=== PATIENT | female | born 1995 | race Caucasian/White ===

== ENCOUNTER → 2023-10-09 | Outpatient (CLI) | payer OTHER ==
[2023-10-09 16:18] LABS: HEMATOCRIT 39.4 % (36.0-47.0); HEMOGLOBIN 13.1 g/dl (12.0-15.5); MEAN CORPUSCULAR HEMOGLOBIN 28.5 pg (27.0-33.0); MEAN CORPUSCULAR HGB CONC 33.2 g/dl (32.0-36.5); MEAN CORPUSCULAR VOLUME 85.7 fl (80.0-96.0); PLATELET COUNT, AUTOMATED 253 10^3/uL (150-450); WHITE BLOOD COUNT 10.1 10^3/uL (4.0-10.0)
[2023-10-09 17:09] LABS: GC DNA AMPLIFICATION NEGATIVE (NEGATIVE)
[2023-10-09 17:13] LABS: HIV 1&2 SCREEN NEGATIVE (NEGATIVE)
[2023-10-09 17:20] LABS: HEPATITIS C VIRUS ABY INDEX 0.06 INDEX (<0.8)
== END ==
LOC: M PLALAB 14:33
PROVIDERS: ATTEND Advanced Practice Midwife
DX: Z34.81 Encounter for supervision of other normal pregnancy, first trimester (principal)

== ENCOUNTER → 2023-12-05 | Outpatient (CLI) | payer OTHER | LOC: M WHC 08:45 | PROVIDERS: ATTEND Advanced Practice Midwife | DX: Z34.02 Encounter for supervision of normal first pregnancy, second trimester (principal) ==

== ENCOUNTER → 2024-01-05 | Outpatient (CLI) | payer OTHER | LOC: M WHC 14:31 | PROVIDERS: ATTEND Advanced Practice Midwife | DX: O99.512 Diseases of the respiratory system complicating pregnancy, second trimester (principal); Z3A.23 23 weeks gestation of pregnancy; J45.909 Unspecified asthma, uncomplicated ==

== ENCOUNTER → 2024-01-11 | Outpatient (CLI) | payer OTHER, SELFPAY ==
[2024-01-11 18:00] LABS: HEMATOCRIT 33.7 % (36.0-47.0); HEMOGLOBIN 11.4 g/dl (12.0-15.5); MEAN CORPUSCULAR HEMOGLOBIN 31.1 pg (27.0-33.0); MEAN CORPUSCULAR HGB CONC 33.8 g/dl (32.0-36.5); MEAN CORPUSCULAR VOLUME 92.1 fl (80.0-96.0); PLATELET COUNT, AUTOMATED 238 10^3/uL (150-450); RED BLOOD COUNT 3.66 10^6/uL (4.00-5.40); WHITE BLOOD COUNT 14.9 10^3/uL (4.0-10.0)
[2024-01-11 19:37] LABS: GC DNA AMPLIFICATION NEGATIVE (NEGATIVE)
== END ==
LOC: M PLALAB 14:32
PROVIDERS: ATTEND Specialist
DX: Z34.02 Encounter for supervision of normal first pregnancy, second trimester (principal); J84.10 Pulmonary fibrosis, unspecified

== ENCOUNTER → 2024-02-07 | Outpatient (CLI) | payer OTHER | LOC: M WHC 13:44 | PROVIDERS: ATTEND Obstetrics & Gynecology | DX: O99.212 Obesity complicating pregnancy, second trimester (principal); Z3A.28 28 weeks gestation of pregnancy ==

== ENCOUNTER → 2024-04-05 | Outpatient (REF) | payer OTHER ==
[~2024-04-05] MED LIST: PRENTAB9 PO
== END ==
LOC: M SFHCWAGY 09:48
PROVIDERS: ATTEND Obstetrics & Gynecology
DX: Z36.85 Encounter for antenatal screening for Streptococcus B (principal); Z3A.36 36 weeks gestation of pregnancy

== ENCOUNTER 2024-04-09 03:55 | Outpatient (CLI) | payer OTHER ==
[~2024-04-09] VITALS: Ht 170.2 cm; Wt 111.3 kg
[2024-04-09] MEDS ORDERED: PRENTAB9 PO (04:09)
[2024-04-09] MEDS ORDERED: HOME MED LIST COMPLETE! XX SCH (04:10)
[2024-04-09 04:21] VITALS: BP 113/74
[2024-04-09 07:05] VITALS: BP 134/84
[2024-04-09 08:20] VITALS: BP 126/80
== END 2024-04-09 08:24 | disposition home or self-care (01) ==
LOC: M LDO 03:55
PROVIDERS: ATTEND Advanced Practice Midwife
DX: O47.1 False labor at or after 37 completed weeks of gestation (principal); O99.343 Other mental disorders complicating pregnancy, third trimester; O99.513 Diseases of the respiratory system complicating pregnancy, third trimester; O99.353 Diseases of the nervous system complicating pregnancy, third trimester; O99.213 Obesity complicating pregnancy, third trimester; F41.8 Other specified anxiety disorders; J45.909 Unspecified asthma, uncomplicated; G43.909 Migraine, unspecified, not intractable, without status migrainosus; E66.9 Obesity, unspecified; Z3A.37 37 weeks gestation of pregnancy
CPT/HCPCS: 59025; G0463

== ENCOUNTER 2024-04-13 15:30 | Inpatient (IN) | payer OTHER ==
[~2024-04-13] VITALS: Ht 170.2 cm; Wt 111.4 kg
[2024-04-13] VITALS (22 sets, daily range): BP systolic 81–129; BP diastolic 51–79
[2024-04-13] MEDS ORDERED: miSOPROStol 50MCG 1/2 TABLET PO PRN (17:20)
[2024-04-13] MEDS: AMPICILLIN SOD 2 GM in D5W MINI-BAG PLUS 100 ML IV STA (17:45)
[2024-04-13] MEDS: LACTATED RINGER'S 1000 ML IV STA (17:45)
[2024-04-13 17:49] LABS: HEMATOCRIT 36.7 % (36.0-47.0); HEMOGLOBIN 12.5 g/dl (12.0-15.5); MEAN CORPUSCULAR HEMOGLOBIN 29.8 pg (27.0-33.0); MEAN CORPUSCULAR HGB CONC 34.1 g/dl (32.0-36.5); MEAN CORPUSCULAR VOLUME 87.6 fl (80.0-96.0); PLATELET COUNT, AUTOMATED 243 10^3/uL (150-450); RED BLOOD COUNT 4.19 10^6/uL (4.00-5.40); WHITE BLOOD COUNT 18.8 10^3/uL (4.0-10.0)
[2024-04-13 18:56] LABS: HEPATITIS C VIRUS ABY INDEX 0.02 INDEX (<0.8)
[2024-04-13] MEDS ORDERED: EPIDURAL/PCA KEYS XX PRN (19:35)
[2024-04-13] MEDS ORDERED: NALOXONE INJ 0.4MG/1ML VIAL IV PRN (19:35)
[2024-04-13] MEDS ORDERED: diphenhydrAMINE 50MG/ML VIAL IV PRN (19:35)
[2024-04-13] MEDS ORDERED: ONDANSETRON 4MG 2ML VIAL IV PRN (19:35)
[2024-04-13] MEDS: ePHEDrine SULFATE 25 MG/5 ML(5MG/ML) SYRINGE IVP PRN (20:55)
[2024-04-13] MEDS: LR 500 ML IV PRN (21:00)
[2024-04-13] MEDS: FENTANYL/ROPIVACAINE/NACL BAG 100 ML EPIDURAL SCH (21:07)
[2024-04-13] MEDS: OXYTOCIN DRIP 30 UNITS in IV 1 EA IV SCH (21:36)
[2024-04-13] MEDS: AMPICILLIN SOD 1 GM in D5W MINI-BAG PLUS 50 ML IV SCH (22:25)
[2024-04-14] VITALS (16 sets, daily range): BP systolic 114–133; BP diastolic 66–91; O2SAT 98–99
[2024-04-14] MEDS ORDERED: METHYLERGONOVINE MALEATE 0.2 MG TAB PO PRN (05:35)
[2024-04-14] MEDS ORDERED: RHO(D) IMMUNE GLOBULIN/MALTOSE 500MCG(2500IU)/2.2ML VIAL (WINRHO) IM SCH (05:35)
[2024-04-14] MEDS ORDERED: DOCUSATE SODIUM 100MG CAPSULE PO PRN (05:35)
[2024-04-14] MEDS: ACETAMINOPHEN TAB 650MG DOSE (2X325MG) PO PRN (06:20)
[2024-04-14] MEDS: PRENATAL VITAMINS CHEWABLE TABLET PO SCH (09:12)
[2024-04-14] MEDS: IBUPROFEN 600MG TAB PO PRN (12:03)
[2024-04-14] MEDS: IBUPROFEN 800 MG TAB PO PRN (20:20)
[2024-04-15 06:00] VITALS: BP 134/87; O2SAT 100
[2024-04-15] MEDS: DIBUCAINE 1% OINTMENT 30GM TOP PRN (11:45)
[2024-04-15 18:00] VITALS: BP 128/70; O2SAT 98
[2024-04-15] MEDS: ACETAMINOPHEN 500 MG TAB PO PRN (23:02)
[2024-04-16 06:00] VITALS: BP 131/77; O2SAT 100
[2024-04-16] MEDS: MEASLES,MUMPS,RUBELLA VACCINE INJ (MMR-II) SC.IMMUN ONE (08:51)
== END 2024-04-16 13:25 | disposition home or self-care (01) | DRG 560 ==
LOC: M LDO 15:30 → M LDI 17:14 → M OBS 04-14 04:42
PROVIDERS: ADMIT Obstetrics & Gynecology; ATTEND Obstetrics & Gynecology
PROC: 10E0XZZ Delivery of Products of Conception, External Approach (ICD-10-PCS; principal; 2024-04-14)
DX: O99.824 Streptococcus B carrier state complicating childbirth (principal); Z37.0 Single live birth; Z3A.37 37 weeks gestation of pregnancy

== ENCOUNTER 2024-05-07 04:32 | Emergency (ER) | payer OTHER ==
[~2024-05-07] VITALS: Ht 170.2 cm; Wt 100.1 kg
[2024-05-07 05:10] LABS: BASO % 0.4 % (0.0-1.0); EOS # 0.1 10^3/uL (0.0-0.5); EOS % 1.4 % (0.0-3.0); HEMATOCRIT 37.9 % (36.0-47.0); HEMOGLOBIN 12.3 g/dl (12.0-15.5); LYMPH # 2.2 10^3/uL (1.5-5.0); LYMPH % 28.2 % (24.0-44.0); MEAN CORPUSCULAR HEMOGLOBIN 28.3 pg (27.0-33.0); MEAN CORPUSCULAR HGB CONC 32.5 g/dl (32.0-36.5); MEAN CORPUSCULAR VOLUME 87.3 fl (80.0-96.0); MONO # 0.4 10^3/uL (0.0-0.8); MONO % 5.3 % (2.0-8.0); NEUTROPHILS % 64.4 % (36.0-66.0); PLATELET COUNT, AUTOMATED 259 10^3/uL (150-450); RED BLOOD COUNT 4.34 10^6/uL (4.00-5.40); WHITE BLOOD COUNT 7.7 10^3/uL (4.0-10.0)
[2024-05-07 05:17] VITALS: BP 159/91
[2024-05-07 05:26] LABS: D-DIMER QUANT 0.57 ug/mL (<0.5); INR 1.02; PARTIAL THROMBOPLASTIN TIME 29.6 SECONDS (24.8-34.2); PROTHROMBIN TIME 13.1 SECONDS (12.5-14.5)
[2024-05-07 05:36] LABS: LIPASE 53 U/L (12-53)
[2024-05-07 05:38] LABS: ALBUMIN 3.5 G/DL (3.2-5.2); ALKALINE PHOSPHATASE 114 U/L (46-116); ALT/SGPT 12 U/L (7.0-40); AST/SGOT 12 U/L (<34); BILIRUBIN,DIRECT 0.2 MG/DL (<0.4); BILIRUBIN,TOTAL 0.6 MG/DL (0.3-1.2); BLOOD UREA NITROGEN 7 MG/DL (9-23); CARBON DIOXIDE LEVEL 23 MMOL/L (20-31); CHLORIDE LEVEL 110 MMOL/L (98-107); CK-MB VALUE MASS < 1.0 NG/ML (<3.6); CPK CREATINE PHOSPHOKINASE 28 U/L (34-145); CREATININE FOR GFR 0.86 MG/DL (0.55-1.30); GLOMERULAR FILTRATION RATE > 60.0 (>60); GLUCOSE, FASTING 99 MG/DL (60-100); MB/CK RELATIVE INDEX 3.57 (< OR =4); POTASSIUM SERUM 3.5 MMOL/L (3.5-5.1); SODIUM LEVEL 139 MMOL/L (136-145); TOTAL PROTEIN 6.5 G/DL (5.7-8.2)
[2024-05-07 05:40] LABS: THYROID STIMULATING HORMONE 2.072 uIU/ML (0.55-4.78)
[2024-05-07 05:41] LABS: FREE T4 1.44 NG/DL (0.89-1.76)
[2024-05-07 06:23] VITALS: TEMP 96.6
[2024-05-07 06:30] VITALS: O2SAT 99
[2024-05-07] MEDS ORDERED: ISOVUE-370 76% 100ML VIAL As Ordered ONE (07:15)
[2024-05-07 07:17] LABS: CK-MB VALUE MASS < 1.0 NG/ML (<3.6)
[2024-05-07 07:19] LABS: CPK CREATINE PHOSPHOKINASE 31 U/L (34-145); MB/CK RELATIVE INDEX 3.22 (< OR =4)
== END 2024-05-07 08:42 | disposition home or self-care (01) ==
LOC: M ED 04:32
DX: R07.9 Chest pain, unspecified (principal); F32.A Depression, unspecified; F41.9 Anxiety disorder, unspecified; Z88.8 Allergy status to other drugs, medicaments and biological substances; J45.909 Unspecified asthma, uncomplicated
CPT/HCPCS: 36415; 71045; 71275; 80048; 80076; 82550; 82553; 83690; 83880; 84439; 84443; 84484; 85025; 85379; 85610; 85730; 93005; 99284; Q9967